=== PATIENT | female | born 2000 | race Caucasian/White ===

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

== ENCOUNTER 2019-08-21 09:18 | Emergency (ER) | payer OTHER ==
[~2019-08-21] VITALS: Ht 154.9 cm; Wt 61.2 kg
[~2019-08-21 09:18] MED LIST: FLEXERIL PO; IBUPROFEN 400400 M2 PO
[2019-08-21 10:45] LABS: BASOPHILS 0.6 % (0.0-2.0); EOSINOPHILS 1.7 % (0.0-3.0); HEMATOCRIT 43.9 % (37.0-47.0); HEMOGLOBIN 14.5 gm/dL (12.0-15.0); LYMPHOCYTES 39.6 % (24.0-44.0); MCH 31.3 pg (26.0-34.0); MCHC 33.1 g/dL (28.0-37.0); MCV 94.5 fL (80.0-100.0); MONOCYTES 6.4 % (1.0-8.0); PLATELET COUNT 135 thou/uL (150-400); POLYS 51.7 % (36.0-66.0); RBC 4.65 mil/uL (4.20-5.00); RDW 13.3 % (10.5-14.5); WBC 7.8 thou/uL (4.0-11.0)
[2019-08-21 11:52] LABS: CALCIUM 9.1 mg/dL (8.5-10.1); CREATININE 0.7 mg/dL (0.6-1.0); MAGNESIUM 1.9 mg/dL (1.8-2.4); POTASSIUM 4.3 mmol/L (3.5-5.1)
[2019-08-21 14:02] VITALS: BP 99/58
--- NOTE | 2019-08-21 17:00 | EKG ---
[facility] [place] [address] ELECTROCARDIOGRAM REPORT Name: KYLERICARDO Room #: [facility]#: [id number] Admission: 08/21/19 Attend Phys: Discharge: 08/21/19 Date of : 89 Report #: [id number] THIS REPORT FOR: cc: FAM - No family physician/PCP FAM - No family physician/PCP Gm Galeas MD ~ THIS REPORT FOR: //name// [facility] ED Test Date: 2019-08-21 Test Time: 09:28:34 Pat Name: RICARDO WRIGHT Department: Room: Gender: F Stem Shaper: [facility] : 2000 Requested By: Black Schuster Order Number: [id number] MD: Gm Galeas Measurements Intervals [place] Rate: 88 P: 66 TN: 135 QRS: 65 QRSD: 98 T: 27 QT: 370 QTc: 448 Interpretive Statements Sinus rhythm No previous ECG available for comparison Electronically Signed On 08-21-2019 16:59:45 [employer] by Gm Galeas [email or web address] <ELECTRONICALLY SIGNED> By: Gm Galeas MD 08/21/19 1659 0928 7 Gm Galeas MD /TRACY
== END 2019-08-21 14:04 | disposition home or self-care (01) ==
LOC: ER 09:18
PROVIDERS: Emergency Medicine; Physician Assistant
DX: E86.0 Dehydration (principal); R55 Syncope and collapse